=== PATIENT | female | born 1985 | race Caucasian/White ===

== ENCOUNTER 2023-08-29 12:50 | Emergency (ER) | payer SELFPAY ==
--- NOTE | 2023-08-29 13:02 | PC.NURSE ---
patient decided to leave without seeing provider. advised to return if needed. verbalized understanding
== END 2023-08-29 13:23 | disposition left against medical advice (07) ==
LOC: ANHED 13:05
PROVIDERS: PCP Emergency Medicine
DX: Z53.21 Procedure and treatment not carried out due to patient leaving prior to being seen by health care provider (principal)
CPT/HCPCS: 99199